=== PATIENT | male | born 1955 ===

== ENCOUNTER 2016-11-05 15:11 | Outpatient (CLI) | payer OTHER ==
--- NOTE | 2016-11-05 16:41 | XRay Report ---
Chest 2 views: History: Cough. Findings: Borderline cardiomegaly. Trachea is midline. No consolidation, pneumothorax or pleural effusion. Impression: No acute cardiopulmonary findings.
== END 2016-11-05 15:12 | disposition home or self-care (01) ==
LOC: SPVIMAG 15:11
PROVIDERS: ATTEND Internal Medicine
DX: R05 Cough (principal)
CPT/HCPCS: 71020